=== PATIENT | female | born 1980 | race Caucasian/White ===

== ENCOUNTER 2018-11-13 22:49 | Emergency (ER) | payer MEDICAID ==
[~2018-11-13] VITALS: Wt 68.4 kg
[2018-11-13 22:51] VITALS: BP 121/71; PULSE 67; RESP 18
[2018-11-13] MEDS ORDERED: FLUORESCEIN STRIP BOTH EYES ONE (23:30)
[2018-11-13] MEDS ORDERED: OPHTHALMIC IRRIG SOLUTION 120 ML BOTH EYES ONE (23:30)
[2018-11-13] MEDS ORDERED: TETRACAINE 0.5% 4 ML OPH BOTH EYES ONE (23:30)
[2018-11-13] MEDS ORDERED: ERYT1OIN6 BOTH EYES (23:37)
[2018-11-13] MEDS ORDERED: MINE3.5O30 BOTH EYES (23:37)
[2018-11-13] MEDS ORDERED: IBUP-1542 PO (23:38)
--- NOTE | 2018-11-13 23:41 | ERD ---
ER Documentation Chief Complaint Chief Complaint BILAT EYE PAIN WITH WATERY DISCHARGE HPI This 38-year-old female presents with bilateral eye pain and irritation after getting unspecified plant material or juice after doing some gardening. This was 4 days ago. She has some irritation but no visual deficits or blurry vision. She denies any significant discharge, abnormal abdomens, fevers, additional symptoms. Patient was shown pictures of a euphorbia plant. this was not the type of plant that she was working with. ROS All systems reviewed and are negative except as per history of present illness. Medications Home Meds Active Scripts Ibuprofen* (Motrin*) 600 Mg Tab, 600 MG PO Q6, #15 TAB Prov:BALDEV ELLISON MD 11/13/18 Erythromycin Base (Erythromycin) 1 Gm Oint...g., 1 APPLIC BOTH EYES QID for 7 Days Prov:BALDEV ELLISON MD 11/13/18 Mineral Oil/Petrolatum,White (ARTIFICIAL TEARS EYE OINT) 3.5 Gm Oint...g., 1 APPLIC BOTH EYES NEEDED PRN for DRY EYES, #1 EA Prov:BALDEV ELLISON MD 11/13/18 Allergies Allergies: Coded Allergies: No Known Drug Allergy (Verified Allergy, Unknown, 04/17/15) PMhx/Soc History of Surgery: No Anesthesia Reaction: No Hx Neurological Disorder: No Hx Respiratory Disorders: No Hx Cardiac Disorders: No Hx Psychiatric Problems: No Hx Miscellaneous Medical Probl: No Hx Alcohol Use: No Hx Substance Use: No Hx Tobacco Use: No Smoking Status: Never smoker FmHx Family History: No diabetes, No coronary disease, No other Physical Exam Vitals Vital Signs Date Temp Pulse Resp B/P (MAP) Pulse Ox O2 O2 Flow FiO2 Time Delivery Rate 11/13/18 97.7 67 18 121/71 99 22:51 (88) Physical Exam Const: No acute distress Head: Atraumatic Eyes: Mild scleral redness. Eyes [place] and extraocular movements intact. Anterior chambers are normal. Visual acuity shows no significant acute abnormalities. No significant floor seen uptake appreciated. ENT: Normal External Ears, Nose and Mouth. Neck: Full range of motion. No meningismus. Resp: Clear to auscultation bilaterally Cardio: Regular rate and rhythm, no murmurs Abd: Soft, non tender, non distended. Normal bowel sounds Skin: No petechiae or rashes Back: No midline or flank tenderness Ext: No cyanosis, or edema Neur: Awake and alert Psych: Normal Mood and Affect Results 24 hrs Current Medications Medications Dose Sig/Jean Carlos Start Time Status Last (Trade) Ordered Route PRN Stop Time Admin Dose Reason Admin Tetracaine 1 drop ONCE ONCE 11/13/18 DC HCl BOTH EYES 23:30 11/13/18 (Tetracaine 23:31 0.5% Steri-Unit Ines) Irrigating 1 applic ONCE ONCE 11/13/18 DC 11/13/18 Solution BOTH EYES 23:30 11/13/18 23:27 (Eye Wash) 23:31 Fluorescein 1 strip ONCE ONCE 11/13/18 DC Sodium BOTH EYES 23:30 11/13/18 (Mnqts-W-Jwam 23:31 p) Procedures/MDM Patient had relief with tetracaine drops. Eyes were irrigated bilaterally. Patient presents with bilateral eye irritation after unspecified plant juice 4 days ago. She has no signs of significant burn or abrasion. She has no evidence of visual deficits. She will discharged home with ophthalmology follow-up in the meantime will provide erythromycin ophthalmic ointment, artificial tears and recommendations for continuous artificial tears and and eye wetting drops. Patient should return for fevers, redness, new worsening symptoms with primary doctor or with ophthalmology as advised. She has no signs or symptoms of optic neuritis, retinal artery ischemia, signs of ulcers or dendritic lesions. She has no evidence of orbital cellulitis, signs or symptoms of acute glaucoma.. Departure Diagnosis: Primary Impression: Eye injury Encounter type: initial encounter Laterality: bilateral Qualified Codes: S05.91XA - Unspecified injury of right eye and orbit, initial encounter; S05.92XA - Unspecified injury of left eye and orbit, initial encounter Condition: Stable Patient Instructions: Eye Exposure, Chemical Referrals: [facility] Hours: Mon - Fri 9:00 AM - 5:00 PM Additional Instructions: Va al trotter doctor/ specialista para mas evaluacon en el proximo semana. posiblemente necesita autorizado de trotter doctor primario para specialista. Regresa para fiebre, o mas o nueva simptomas. BALDEV ELLISON MD Nov 13, 2018 23:41
== END 2018-11-14 00:03 | disposition home or self-care (01) ==
LOC: FTE 22:49
DX: S05.91XA Unspecified injury of right eye and orbit, initial encounter (principal); S05.92XA Unspecified injury of left eye and orbit, initial encounter; X58.XXXA Exposure to other specified factors, initial encounter; Y92.007 Garden or yard of unspecified non-institutional (private) residence as the place of occurrence of the external cause
CPT/HCPCS: Z7502; Z7610; 99283

== ENCOUNTER 2019-01-03 11:43 | Emergency (ER) | payer MEDICAID ==
[~2019-01-03] VITALS: Wt 65.0 kg
[~2019-01-03 11:43] MED LIST: ERYT1OIN6 BOTH EYES; IBUP-1542 PO; MINE3.5O30 BOTH EYES
[2019-01-03] MEDS ORDERED: IBUPROFEN 800 MG TAB PO ONE (12:30)
[2019-01-03] MEDS ORDERED: IBUP-1542 PO (12:51)
--- NOTE | 2019-01-03 12:52 | ERD ---
ER Documentation Chief Complaint Chief Complaint SUDDEN ONSET L SIDE CHEST PAIN RADIATING TO L ARM SINCE THIS AM HPI Patient is a 38-year-old female with no medical problems who presents with chest pain. The patient has left-sided chest pain and arm pain. Started this morning. It has been constant. The patient has had no treatment as of yet. Upon review of old medical records this is the patient's 10th visit to the ER since 2009. The patient does not currently have a primary doctor. ROS All systems reviewed and are negative except as per history of present illness. Medications Home Meds Active Scripts Ibuprofen* (Motrin*) 600 Mg Tab, 600 MG PO Q6H PRN for PAIN AND OR ELEVATED TEMP, #30 TAB Prov:CHRIS FORTE MD 01/03/19 Ibuprofen* (Motrin*) 600 Mg Tab, 600 MG PO Q6, #15 TAB Prov:BALDEV ELLISON MD 11/13/18 Erythromycin Base (Erythromycin) 1 Gm Oint...g., 1 APPLIC BOTH EYES QID for 7 Days Prov:BALDEV ELLISON MD 11/13/18 Mineral Oil/Petrolatum,White (ARTIFICIAL TEARS EYE OINT) 3.5 Gm Oint...g., 1 APPLIC BOTH EYES NEEDED PRN for DRY EYES, #1 EA Prov:BALDEV ELLISON MD 11/13/18 Allergies Allergies: Coded Allergies: No Known Drug Allergy (Verified Allergy, Unknown, 04/17/15) PMhx/Soc Medical and Surgical Hx: pt denies Medical Hx, pt denies Surgical Hx History of Surgery: No Anesthesia Reaction: No Hx Neurological Disorder: No Hx Respiratory Disorders: No Hx Cardiac Disorders: No Hx Psychiatric Problems: No Hx Miscellaneous Medical Probl: No Hx Alcohol Use: No Hx Substance Use: No Hx Tobacco Use: No Smoking Status: Never smoker FmHx Family History: No coronary disease Physical Exam Vitals Vital Signs Date Temp Pulse Resp B/P (MAP) Pulse Ox O2 O2 Flow FiO2 Time Delivery Rate 01/03/19 98.2 80 20 143/63 98 11:46 (89) Physical Exam Const: No acute distress Head: Atraumatic Eyes: Normal Conjunctiva ENT: Normal External Ears, Nose and Mouth. Neck: Full range of motion. No meningismus. Resp: Clear to auscultation bilaterally Cardio: Regular rate and rhythm, no murmurs, chest wall pain with palpation Abd: Soft, non tender, non distended. Normal bowel sounds Skin: No petechiae or rashes Back: No midline or flank tenderness Ext: No cyanosis, or edema Neur: Awake and alert Psych: Normal Mood and Affect Results 24 hrs Laboratory Tests Test 01/03/19 12:32 POC Beta HCG, Qualitative NEGATIVE Current Medications Medications Dose Sig/Jean Carlos Start Time Status Last (Trade) Ordered Route PRN Stop Time Admin Dose Reason Admin Ibuprofen 800 mg ONCE ONCE 01/03/19 DC 01/03/19 (Motrin) PO 12:30 12:39 01/03/19 12:31 Procedures/MDM EKG read by me: Rate/Rhythm: Regular rate and rhythm at a rate of 72 Intervals: Normal Impression: No evidence of ischemia or arrhythmia Chest x-ray negative per radiology. Patient is a 38-year-old female with no medical problems who presents with chest pain. Chest wall pain was reproduced with palpation. EKG and chest x-ray are negative. test is negative. At this point I doubt acute coronary syndrome, pneumonia, pneumothorax, pulmonary embolism, or aortic dissection. The patient will be discharged but will need to follow-up with the local clinics within 24-48 hours for reevaluation. The patient can return for any worsening symptoms. Departure Diagnosis: Primary Impression: Chest pain Chest pain type: unspecified Qualified Codes: R07.9 - Chest pain, unspecified Condition: Fair Patient Instructions: Chest Pain, Uncertain Cause [facility] Usted se [place] hecho un examen mdico de control que le indica que no est en erica condicin que requiera tratamiento urgente en el Departamento de Emergencia. Un estudio ms profundo y el tratamiento de trotter condicin pueden esperar sin ningn riesgo hasta que usted sea atendida/o en el consultorio de trotter mdico o erica clnica. Es responsabilidad suya arreglar erica tamiko para el seguimiento del po. MANEJO DE CONDICIONES NO URGENTES EN EL FUTURO 1) Si usted tiene un mdico de atencin primaria: Usted debera llamar a trotter mdico de atencin primaria antes de venir al departamento de emergencia. Despus de las horas de consultorio, trotter doctor o trotter asociado/a est disponible por telfono. El mdico o enfermero de aster en el servicio telefnico puede asesorarle por peggy medio para atender el problema, o po contrario se puede programar erica tamiko. 2) Si usted no tiene un mdico de atencin primaria: Llame al mdico o clnica de referencia que aparece abajo hao las horas de consultorio para hacer eirca tamiko para que le vean. CLINICAS: [place] [address] [phone] [facility] [id number] [place] [address] [phone] [place] [address] [phone] [facility] [place] [address] [phone] [place] [id number] [phone] Additional Instructions: Llame al doctor MAANA y yoshi erica TAMIKO PARA DENTRO DE 1-2 POSADA.Dgale a la secretaria que nosotros le instruimos hacer esta tamiko.Avise o llame si trotter condicin se empeora antes de la tamiko. Regresa aqui si peor o no mejor. CHRIS FORTE MD Jan 03, 2019 12:52
[2019-01-03 13:29] VITALS: BP 103/69; PULSE 80; RESP 18
== END 2019-01-03 13:37 | disposition home or self-care (01) ==
LOC: E/R 11:43
DX: R07.9 Chest pain, unspecified (principal)
CPT/HCPCS: 71045; 81025; 93005; Z7502; Z7610